=== PATIENT | female | born 1965 | race Native Hawaiian/Other Pacific Islander ===

== ENCOUNTER 2021-12-11 15:46 | Emergency (ER) | payer BC ==
[~2021-12-11] VITALS: Ht 165.1 cm; Wt 73.0 kg
[2021-12-11 15:50] VITALS: TEMP 98.9
[2021-12-11 16:56] LABS: PLATELET COUNT 165 K/uL (152-353)
[2021-12-11 16:59] LABS: POTASSIUM 4.1 mmol/L (3.6-5.2)
[2021-12-11 18:39] VITALS: BP 136/69
== END 2021-12-11 18:39 | disposition home or self-care (01) ==
LOC: ED 15:46
PROVIDERS: Emergency Medicine
DX: I95.1 Orthostatic hypotension (principal)
CPT/HCPCS: 80053; 81000; 84484; 85027; 85610; 87651; 93005; 96360; 99284

== ENCOUNTER 2022-12-16 10:52 | Emergency (ER) | payer BC ==
[~2022-12-16] VITALS: Ht 165.1 cm; Wt 80.7 kg
[2022-12-16 10:55] VITALS: BP 155/74; TEMP 98.9
== END 2022-12-16 11:21 | disposition home or self-care (01) ==
LOC: ED 10:52
DX: J32.9 Chronic sinusitis, unspecified (principal)
CPT/HCPCS: 99281